=== PATIENT | male | born 1990 | race Two or more races ===

== ENCOUNTER 2025-02-02 17:28 | Inpatient (IN) | payer OTHER ==
[~2025-02-02] VITALS: Ht 175.3 cm; Wt 70.3 kg
--- NOTE | 2025-02-02 17:45 | NUR ---
PTE ALERTA Y ORIENTADO X3. REFIERE VENIR POR REFERIDO DE DR. CONRAD HENRY POR HX DE CELLULITIS Y ULCERA CON PRESENCIA DE BACTERIA EN PRASANTH BUSTAMANTE. SE RUBEN SV Y SE UBICA
[2025-02-02] MEDS ORDERED: 0.9 % SODIUM CHLORIDE 1,000 ML IV STA (17:57)
[2025-02-02] MEDS ORDERED: CIPROFLOXACIN IN 5 % DEXTROSE 400 MG/200 ML PIGGYBAG IV ONE ×2 (18:00→18:02)
--- NOTE | 2025-02-02 18:50 | NUR ---
SE ORIENTA PTE SOBRE TX MEDICO EL CUAL REFIERE ENTENDER.SE LE EXTRAEN MUESTRAS BAJO MEDIDAS ASEPTICAS,SE CANALIZA Y SE ADMINISTRAN MEDICAMENTOS.
--- NOTE | 2025-02-02 18:50 | NUR ---
NO SE BRENDAN CULTIVO DE ULCERA YA QUE NO SE PERMITE POR ER.
[2025-02-02 18:53] LABS: HEMATOCRIT 35.5 % (39.0-48.0); HEMOGLOBIN 11.8 g/dL (13-16.00); MEAN CORPUSCULAR HEMOGLOBIN 29.7 pg (27.00-32.0); MEAN CORPUSCULAR HGB CONC 33.3 g/dl (32.0-36.0); PLATELET COUNT 301 K/uL (150-450); RED BLOOD COUNT 3.99 M/uL (4.00-6.00)
[2025-02-02 19:11] LABS: ALBUMIN 2.4 gm/dL (3.4-5.0); BILIRUBIN TOTAL 0.18 mg/dL (0.3-1.2); CALCIUM 8.1 mg/dL (8.5-10.1); CREATININE SERUM 2.1 mg/dL (0.70-1.30); GFR 35.91; POTASSIUM 4.41 mEq/L (3.5-5.1); TOTAL PROTEIN 7.4 gm/dL (6.4-8.2)
[2025-02-02] MEDS ORDERED: MEROPENEM 500 MG/VIAL VIAL IV SCH (21:20)
[2025-02-02] MEDS ORDERED: 0.9 % SODIUM CHLORIDE 1,000 ML IV ONE (21:30)
[2025-02-02] MEDS ORDERED: VANCOMYCIN HCL 500 MG VIAL IU ONE (21:30)
[2025-02-02] MEDS ORDERED: ONDANSETRON HCL 4 MG in 0.9 % SODIUM CHLORIDE 50 ML IV PRN (21:30)
[2025-02-02] MEDS ORDERED: ACETAMINOPHEN 500 MG GEL..CAP PO PRN (21:30)
[2025-02-02] MEDS ORDERED: 0.9 % SODIUM CHLORIDE 1,000 ML IV SCH (21:30)
[2025-02-02] MEDS ORDERED: VANCOMYCIN HCL 1,000 MG VIAL ONE (21:34)
[2025-02-02 21:48] LABS: PH,URINE 5.5 (5.0-8.0); URINE APPEARANCE Clear; URINE BILIRRUBIN Negative (NEGATIVE); URINE BLOOD Large; URINE COLOR Yellow; URINE GLUCOSE Negative (NEGATIVE); URINE KETONE Negative (NEGATIVE); URINE LEUKOCYTE Negative; URINE NITRATE Negative; URINE PROTEIN >=1000 (NEGATIVE); URINE UROBILINOGEN 0.2 E.U./dl
[2025-02-02 21:51] LABS: URINE BACTERIA 183.5 uL (0.0-1933); URINE EPITHELIAL CELLS 18.8 uL (0.0-38.8); URINE RBC 616.4 uL (0.0-20.8); URINE WBC 133.9 uL (0.0-23.2)
[2025-02-02 22:10] LABS: URINE YEAST MANY /hpf
[2025-02-03 06:24] VITALS: BP 114/73
[2025-02-03 08:00] VITALS: BP 116/67; O2SAT 97
[2025-02-03] MEDS ORDERED: TETRACAINE/BENZOCAINE/BUTAMBEN 56 ML BOTTLE TOP STA (08:01)
[2025-02-03] MEDS ORDERED: TETRACAINE/BENZOCAINE/BUTAMBEN 56 ML BOTTLE TOP SCH (09:00)
[2025-02-03] MEDS ORDERED: FAMOTIDINE/PF 20 MG in 0.9 % SODIUM CHLORIDE 8 ML IV PUSH SCH (09:00)
[2025-02-03] MEDS ORDERED: SODIUM HYPOCHLORITE 1OZ TOP SCH (09:00)
[2025-02-03] MEDS ORDERED: RIVAROXABAN 20 MG TABLET PO SCH (09:00)
[2025-02-03 09:22] LABS: D DIMER 7.86 MG/L; INR 0.97; PARTIAL THROMBOPLASTIN TIME 28.6 SECONDS (22.0-34.0); PROTHROMBIN TIME 10.6 SECONDS (9.0-11.5)
[2025-02-03 10:04] LABS: ALBUMIN 2.2 gm/dL (3.4-5.0); BILIRUBIN TOTAL 0.24 mg/dL (0.3-1.2); CREATININE SERUM 1.63 mg/dL (0.70-1.30); GFR 48.11; GLOBULINA 4.3 G/DL (2.4-3.5); MAGNESIUM 1.5 mg/dL (1.8-2.4); PHOSPHOROUS 3.6 mg/dL (2.5-4.9); POTASSIUM 4.21 mEq/L (3.5-5.1); TOTAL PROTEIN 6.5 gm/dL (6.4-8.2)
[2025-02-03 10:14] LABS: C-REACTIVE PROTEIN 2.22 MG/DL (0.00-0.29)
[2025-02-03] MEDS ORDERED: OxyCODONE HCL/APAP UD (PERCOCET) PO PRN (11:30)
[2025-02-03 17:59] VITALS: BP 116/82; O2SAT 98
[2025-02-03] MEDS ORDERED: MAGNESIUM SULFATE/D5W 100 ML IV NR (19:00)
[2025-02-04 02:09] VITALS: BP 127/85; O2SAT 99
[2025-02-04] MEDS ORDERED: VANCOMYCIN HCL 1,000 MG VIAL IV SCH (09:00)
[2025-02-04 18:23] VITALS: BP 131/82; O2SAT 97
[2025-02-04 20:59] LABS: HEMATOCRIT 30.8 % (39.0-48.0); HEMOGLOBIN 10.4 g/dL (13-16.00); MEAN CELL VOLUME 89.6 fL (80.0-100.00); MEAN CORPUSCULAR HEMOGLOBIN 30.3 pg (27.00-32.0); MEAN CORPUSCULAR HGB CONC 33.9 g/dl (32.0-36.0); PLATELET COUNT 271 K/uL (150-450); RED BLOOD COUNT 3.44 M/uL (4.00-6.00); RED CELL DISTRIBUTION WIDTH 16.1 % (11.5-14.5)
[2025-02-04] MEDS ORDERED: METHYLPREDNISOLONE SOD SUCC 40 MG VIAL IV ONE (21:15)
[2025-02-04] MEDS ORDERED: DIPHENHYDRAMINE HCL 50 MG/ML VIAL 1ML IV ONE (21:15)
[2025-02-04 21:26] LABS: ALBUMIN 2.3 gm/dL (3.4-5.0); BILIRUBIN TOTAL 0.18 mg/dL (0.3-1.2); CALCIUM 7.9 mg/dL (8.5-10.1); CREATININE SERUM 1.37 mg/dL (0.70-1.30); GFR 58.79; GLOBULINA 4.1 G/DL (2.4-3.5); MAGNESIUM 1.5 mg/dL (1.8-2.4); PHOSPHOROUS 3.5 mg/dL (2.5-4.9); POTASSIUM 4.35 mEq/L (3.5-5.1); TOTAL PROTEIN 6.4 gm/dL (6.4-8.2)
[2025-02-04 21:30] LABS: C-REACTIVE PROTEIN 1.53 MG/DL (0.00-0.29)
[2025-02-05 02:30] VITALS: BP 147/96; O2SAT 98
[2025-02-05 04:00] VITALS: BP 146/88
[2025-02-05 08:29] VITALS: BP 135/86
[2025-02-05] MEDS ORDERED: TRAMADOL HCL 50 MG TABLET PO PRN (10:30)
[2025-02-05] MEDS ORDERED: PENTOXIFYLLINE 400 MG TABLET.SA PO SCH (13:13)
[2025-02-05] MEDS ORDERED: Pregabalin 50 MG CAPSULE PO PRN (13:15)
[2025-02-05 16:56] VITALS: BP 140/79; O2SAT 98
[2025-02-05] MEDS ORDERED: XARELTO20 MG PO (19:23)
[2025-02-06 00:54] VITALS: BP 136/90; O2SAT 98
[2025-02-06 08:14] VITALS: BP 130/90
[2025-02-06 18:49] VITALS: BP 147/92; O2SAT 100
[2025-02-07] MEDS ORDERED: AZTREONAM 1,000 MG VIAL IV SCH (01:00)
[2025-02-07 01:22] VITALS: BP 120/79; O2SAT 99
[2025-02-07 08:28] VITALS: BP 130/82
[2025-02-07] MEDS ORDERED: DIPHENHYDRAMINE HCL 50 MG CAPSULE PO NR (09:15)
[2025-02-07 18:57] VITALS: BP 147/93; O2SAT 97
[2025-02-08 01:34] VITALS: BP 145/85; O2SAT 98
[2025-02-08 07:45] LABS: MAGNESIUM 1.4 mg/dL (1.8-2.4); PHOSPHOROUS 3.4 mg/dL (2.5-4.9)
[2025-02-08 07:49] LABS: ALBUMIN 2.3 gm/dL (3.4-5.0); BILIRUBIN TOTAL 0.25 mg/dL (0.3-1.2); CALCIUM 8.3 mg/dL (8.5-10.1); CREATININE SERUM 1.62 mg/dL (0.70-1.30); GFR 48.45; GLOBULINA 4.2 G/DL (2.4-3.5); POTASSIUM 4.27 mEq/L (3.5-5.1); TOTAL PROTEIN 6.5 gm/dL (6.4-8.2)
[2025-02-08] MEDS ORDERED: FAMOTIDINE/PF 20 MG/2 ML VIAL ONE (07:57)
[2025-02-08 08:29] VITALS: BP 143/81; O2SAT 98
[2025-02-08] MEDS ORDERED: MAGNESIUM SULFATE IN WATER 50 ML IV NR (10:00)
[2025-02-08] MEDS ORDERED: DOXYCYCLINE HYCLATE 100MG IV ONE (16:44)
[2025-02-08] MEDS ORDERED: DOXYCYCLINE HYCLATE 100MG IV SCH (17:00)
[2025-02-08 17:32] VITALS: BP 126/71
[2025-02-09 02:30] VITALS: BP 152/96; O2SAT 98
[2025-02-09] MEDS ORDERED: DOXYCYCLINE HYCLATE 100MG IV ONE ×2 (05:11→16:28)
[2025-02-09 07:22] LABS: BASO % 0.4 % (0.1-1.2); EOS # 0.22 (0.04-0.54); EOS % 2.7 % (0.7-7.0); HEMATOCRIT 33.8 % (40.1-51.0); HEMOGLOBIN 11.5 g/dL (13.7-17.5); LYMPH # 2.09 (1.18-3.74); LYMPH % 26.1 % (19.3-53.1); MEAN CORPUSCULAR HEMOGLOBIN 29.3 pg (25.6-32.2); MONO # 0.51 (0.24-0.82); MONO % 6.4 % (4.7-12.5); NEUT # 5.13 (1.56-6.13); PLATELET COUNT 270 K/uL (163-369); RED BLOOD COUNT 3.93 M/uL (4.63-6.08); RED CELL DISTRIBUTION WIDTH 15.1 % (11.6-14.4)
[2025-02-09 08:16] VITALS: BP 147/95
[2025-02-09 08:38] LABS: ALBUMIN 2.3 gm/dL (3.4-5.0); BILIRUBIN TOTAL 0.26 mg/dL (0.3-1.2); CALCIUM 8.3 mg/dL (8.5-10.1); CREATININE SERUM 1.39 mg/dL (0.70-1.30); GFR 57.82; GLOBULINA 4.5 G/DL (2.4-3.5); MAGNESIUM 1.6 mg/dL (1.8-2.4); PHOSPHOROUS 3.4 mg/dL (2.5-4.9); POTASSIUM 4.19 mEq/L (3.5-5.1); TOTAL PROTEIN 6.8 gm/dL (6.4-8.2)
[2025-02-09] MEDS ORDERED: Pregabalin 50 MG,Pregabalin 25 MG PO SCH (13:00)
[2025-02-09] MEDS ORDERED: MAGNESIUM SULFATE/D5W 100 ML IV NR (13:15)
[2025-02-09 17:29] VITALS: BP 137/90; O2SAT 97
[2025-02-10 01:41] VITALS: BP 128/83; O2SAT 100
[2025-02-10] MEDS ORDERED: DOXYCYCLINE HYCLATE 100MG IV ONE ×2 (04:57→16:18)
[2025-02-10 07:50] LABS: ALBUMIN 2.3 gm/dL (3.4-5.0); CALCIUM 8.4 mg/dL (8.5-10.1); CREATININE SERUM 1.67 mg/dL (0.70-1.30); GFR 46.78; MAGNESIUM 1.7 mg/dL (1.8-2.4); PHOSPHOROUS 3.7 mg/dL (2.5-4.9); POTASSIUM 4.81 mEq/L (3.5-5.1)
[2025-02-10 08:29] VITALS: BP 132/66; O2SAT 99
[2025-02-10] MEDS ORDERED: MAGNESIUM SULFATE IN WATER 50 ML IV NR (14:00)
[2025-02-10 18:23] VITALS: BP 141/82; O2SAT 98
[2025-02-10] MEDS ORDERED: NICOTINE 21MG/24HR PATCH.TD24 TD SCH (22:54)
[2025-02-10] MEDS ORDERED: MAGNESIUM SULFATE 1,000 MG in 0.9 % SODIUM CHLORIDE 50 ML IV ONE (23:15)
[2025-02-11 01:30] VITALS: BP 150/92; O2SAT 100
[2025-02-11] MEDS ORDERED: TRAMADOL HCL 50 MG TABLET PO PRN (02:30)
[2025-02-11] MEDS ORDERED: DOXYCYCLINE HYCLATE 100MG IV ONE ×2 (04:45→15:31)
[2025-02-11 09:38] VITALS: BP 160/93; O2SAT 100
[2025-02-11 10:01] LABS: ALBUMIN 2.6 gm/dL (3.4-5.0); BILIRUBIN TOTAL 0.25 mg/dL (0.3-1.2); CALCIUM 8.5 mg/dL (8.5-10.1); CREATININE SERUM 1.64 mg/dL (0.70-1.30); GFR 47.77; GLOBULINA 4.7 G/DL (2.4-3.5); MAGNESIUM 2.1 mg/dL (1.8-2.4); POTASSIUM 4.27 mEq/L (3.5-5.1); TOTAL PROTEIN 7.3 gm/dL (6.4-8.2)
[2025-02-11 17:38] VITALS: BP 131/88
[2025-02-12 01:26] VITALS: BP 158/106
[2025-02-12 08:49] VITALS: BP 183/90; O2SAT 91
[2025-02-12 13:53] LABS: ALBUMIN 2.5 gm/dL (3.4-5.0); BILIRUBIN TOTAL 0.41 mg/dL (0.3-1.2); CALCIUM 8.5 mg/dL (8.5-10.1); CREATININE SERUM 1.59 mg/dL (0.70-1.30); GFR 49.51; GLOBULINA 4.6 G/DL (2.4-3.5); POTASSIUM 4.49 mEq/L (3.5-5.1); TOTAL PROTEIN 7.1 gm/dL (6.4-8.2)
[2025-02-12] MEDS ORDERED: PENTOXIFYLLINE400 MG PO (17:09)
[2025-02-12] MEDS ORDERED: XARELTO20 MG PO (17:09)
[2025-02-12] MEDS ORDERED: MONODOX100 MG PO (17:09)
[2025-02-12] MEDS ORDERED: LYRICA100 MG PO (17:09)
== END 2025-02-12 17:45 | disposition home or self-care (01) | DRG 580 ==
LOC: ER 17:28 → MEDI 21:58 → MEDJ 21:58
PROVIDERS: Emergency Medicine; Internal Medicine; Internal Medicine Infectious Disease; ADMIT Internal Medicine; ATTEND Internal Medicine
PROC: BT4JZZZ Ultrasonography of Kidneys and Bladder (ICD-10-PCS; 2025-02-02)
PROC: B54DZZZ Ultrasonography of Bilateral Lower Extremity Veins (ICD-10-PCS; 2025-02-02)
PROC: 0JBN3ZZ Excision of Right Lower Leg Subcutaneous Tissue and Fascia, Percutaneous Approach (ICD-10-PCS; principal; 2025-02-03)
PROC: BB24ZZZ Computerized Tomography (CT Scan) of Bilateral Lungs (ICD-10-PCS; 2025-02-04)
PROC: 02HV33Z Insertion of Infusion Device into Superior Vena Cava, Percutaneous Approach (ICD-10-PCS; 2025-02-04)
PROC: 0JBN3ZZ Excision of Right Lower Leg Subcutaneous Tissue and Fascia, Percutaneous Approach (ICD-10-PCS; 2025-02-10)
DX: L03.116 Cellulitis of left lower limb (principal); I82.401 Acute embolism and thrombosis of unspecified deep veins of right lower extremity; N17.8 Other acute kidney failure; L97.818 Non-pressure chronic ulcer of other part of right lower leg with other specified severity; L08.89 Other specified local infections of the skin and subcutaneous tissue; B96.20 Unspecified Escherichia coli [E. coli] as the cause of diseases classified elsewhere

== ENCOUNTER 2025-02-14 19:03 | Inpatient (IN) | payer OTHER ==
[~2025-02-14] VITALS: Ht 175.3 cm; Wt 74.8 kg
[~2025-02-14 19:03] MED LIST: LYRICA100 MG PO; MONODOX100 MG PO; PENTOXIFYLLINE400 MG PO; XARELTO20 MG PO
--- NOTE | 2025-02-14 19:41 | NUR ---
SE RECIBE PTE ALERTA, ORIENTADO X3 Y AMBULANDO. PTE REFIERE DOLOR EN TOBILLO SALAS, SE OBSERVA AREA CON EDEMA Y ULCERA. PTE REFIERE DOLOR AL CAMINAR. SE MIDEN S/V Y SE UBICA.
[2025-02-14] MEDS ORDERED: FAMOtidine 10 MG/ML (4ML VIAL) IV ONE (20:30)
[2025-02-14] MEDS ORDERED: CIPROFLOXACIN IN 5 % DEXTROSE 400 MG/200 ML PIGGYBAG IV ONE (20:30)
[2025-02-14 21:38] LABS: ALBUMIN 2.1 gm/dL (3.4-5.0); BILIRUBIN TOTAL 0.13 mg/dL (0.3-1.2); CREATININE SERUM 1.71 mg/dL (0.70-1.30); GFR 45.52; GLOBULINA 5.3 G/DL (2.4-3.5); POTASSIUM 4.55 mEq/L (3.5-5.1); TOTAL PROTEIN 7.4 gm/dL (6.4-8.2)
--- NOTE | 2025-02-14 21:38 | NUR ---
RN MOSES ORIENTA SOBRE TX MEDICO Y REFIERE ACEPTAR. EJECUTA ORDENES MEDICAS A DURANT TOTALIDAD.
--- NOTE | 2025-02-15 | NUR ---
SE RECIBE PACIENTE ALERTA Y ORIENTADO X3. EL MISMO CANALIZADO EN MANO IZQUIERDA # 24 EN S/L. EL MISMO PENDIENTE A BETH MUESTRAS DE LABORATORIOS.
--- NOTE | 2025-02-15 | NUR ---
SE BRENDAN MUESTRA DE LABORATORIO ORDENADA SE VERNON CANALIZADO EN LAI SMITH # 24.
[2025-02-15 00:25] LABS: BASO % 0.4 % (0.1-1.2); EOS # 0.24 (0.04-0.54); EOS % 3.4 % (0.7-7.0); HEMATOCRIT 35.2 % (40.1-51.0); HEMOGLOBIN 11.9 g/dL (13.7-17.5); LYMPH # 1.81 (1.18-3.74); LYMPH % 25.3 % (19.3-53.1); MEAN CORPUSCULAR HEMOGLOBIN 29.5 pg (25.6-32.2); MONO # 0.34 (0.24-0.82); MONO % 4.8 % (4.7-12.5); NEUT # 4.68 (1.56-6.13); NEUT % 65.4 % (34.0-71.1); PLATELET COUNT 279 K/uL (163-369); RED BLOOD COUNT 4.04 M/uL (4.63-6.08); RED CELL DISTRIBUTION WIDTH 14.8 % (11.6-14.4)
[2025-02-15] MEDS ORDERED: RIVAROXABAN 20 MG TABLET PO STA (01:53)
[2025-02-15] MEDS ORDERED: TRAMADOL HCL 50 MG TABLET PO STA ×2 (01:53→07:07)
[2025-02-15] MEDS ORDERED: 0.9 % SODIUM CHLORIDE 1,000 ML IV ONE (02:00)
--- NOTE | 2025-02-15 02:06 | NUR ---
SE COLOCA IVFS A PACIENTE Y SE ADMINITRA MEDICAMENTOS DEAN ORDEN MEDICA. PACIENTE PENDIENTE A ESTUDIOS DE DOPPLER EN AM. SE VERNON PENDIENTE MUESTRA DE D-DIMMER YA QUE PACIENTE TIENE POBRE ACESOS VENOSOS
[2025-02-15] MEDS ORDERED: CIPROFLOXACIN IN 5 % DEXTROSE 200 ML IV SCH (09:00)
[2025-02-15] MEDS ORDERED: METHYLPREDNISOLONE SOD SUCC 125 MG VIAL ONE (15:26)
[2025-02-15] MEDS ORDERED: FUROsemide 20 MG/2 ML VIAL IV ONE (17:00)
[2025-02-15] MEDS ORDERED: FUROsemide 20 MG/2 ML VIAL ONE (17:35)
[2025-02-15 22:20] VITALS: BP 145/107
[2025-02-16 00:34] VITALS: BP 143/80
[2025-02-16] MEDS ORDERED: SODIUM CHLORIDE 0.45 % 1,000 ML IV SCH (08:15)
[2025-02-16 08:17] VITALS: BP 149/93
[2025-02-16] MEDS ORDERED: ACETAMINOPHEN 500 MG GEL..CAP PO PRN (08:30)
[2025-02-16] MEDS ORDERED: hydrALAZINE HCL 20 MG VIAL IV PRN (08:30)
[2025-02-16] MEDS ORDERED: DOXYCYCLINE HYCLATE 100MG IV SCH (09:00)
[2025-02-16] MEDS ORDERED: ENOXAPARIN SODIUM 80 MG/0.8 ML SYRINGE SUBCUTANEO SCH (09:00)
[2025-02-16] MEDS ORDERED: FAMOTIDINE/PF 20 MG/2 ML VIAL IV SCH (09:00)
[2025-02-16] MEDS ORDERED: NICOTINE 21MG/24HR PATCH.TD24 TD SCH (09:48)
[2025-02-16] MEDS ORDERED: hydrALAZINE HCL 25 MG TABLET PO SCH (09:50)
[2025-02-16] MEDS ORDERED: TRAMADOL HCL 50 MG TABLET PO PRN (10:00)
[2025-02-16] MEDS ORDERED: DOXYCYCLINE HYCLATE 100MG IV ONE ×2 (10:40→20:33)
[2025-02-16 16:00] VITALS: BP 152/82; O2SAT 98
[2025-02-16] MEDS ORDERED: PENTOXIFYLLINE 400 MG TABLET.SA PO SCH (17:00)
[2025-02-16 17:09] LABS: INR 1.01; PARTIAL THROMBOPLASTIN TIME 32.9 SECONDS (22.0-34.0)
[2025-02-16] MEDS ORDERED: ONDANSETRON HCL 2 MG/ML VIAL IV PRN (17:15)
[2025-02-17 00:47] VITALS: BP 113/75; O2SAT 98
[2025-02-17 06:30] LABS: PH,URINE 6.5 (5.0-8.0); URINE APPEARANCE Clear; URINE BILIRRUBIN Negative (NEGATIVE); URINE BLOOD Moderate; URINE COLOR Yellow; URINE GLUCOSE Negative (NEGATIVE); URINE KETONE Negative (NEGATIVE); URINE LEUKOCYTE Negative; URINE NITRATE Negative; URINE UROBILINOGEN 0.2 E.U./dl
[2025-02-17 06:32] LABS: URINE BACTERIA 35.4 uL (0.0-1933); URINE EPITHELIAL CELLS 5.5 uL (0.0-38.8); URINE RBC 359.8 uL (0.0-20.8); URINE WBC 36.7 uL (0.0-23.2)
[2025-02-17 06:52] LABS: URINE CAST 0.73 uL (0.0-1.40); URINE PROTEIN 300 (NEGATIVE)
[2025-02-17 08:00] VITALS: BP 133/83; O2SAT 92
[2025-02-17] MEDS ORDERED: DOXYCYCLINE HYCLATE 100MG IV ONE ×3 (08:27→20:53)
[2025-02-17 17:00] VITALS: BP 131/71; O2SAT 97
[2025-02-17] MEDS ORDERED: VITAMIN B COMPLEX 1 EACH PO NR (19:15)
[2025-02-17] MEDS ORDERED: Cyanocobalamin/Mecobalamin 1 TAB.SL SL NR (19:15)
[2025-02-17 19:27] LABS: COCAINE NEGATIVE (NEGATIVE); METHADONE NEGATIVE (NEGATIVE); OPIATES NEGATIVE (NEGATIVE); THC ( Cannabinoids) POSITIVE (NEGATIVE)
[2025-02-18 00:38] VITALS: BP 134/89
[2025-02-18 08:00] VITALS: BP 148/92; O2SAT 99
[2025-02-18] MEDS ORDERED: DOXYCYCLINE HYCLATE 100MG IV ONE ×2 (08:02→16:31)
[2025-02-18] MEDS ORDERED: VITAMIN B COMPLEX 1 EACH PO SCH (09:00)
[2025-02-18] MEDS ORDERED: Cyanocobalamin/Mecobalamin 1 TAB.SL SL SCH (09:00)
[2025-02-18 11:29] LABS: BASO % 0.2 % (0.1-1.2); EOS # 0.22 (0.04-0.54); EOS % 2.7 % (0.7-7.0); HEMATOCRIT 33.6 % (40.1-51.0); HEMOGLOBIN 11.2 g/dL (13.7-17.5); LYMPH # 2.51 (1.18-3.74); LYMPH % 30.5 % (19.3-53.1); MEAN CORPUSCULAR HEMOGLOBIN 28.6 pg (25.6-32.2); MONO # 0.61 (0.24-0.82); MONO % 7.4 % (4.7-12.5); NEUT # 4.86 (1.56-6.13); PLATELET COUNT 344 K/uL (163-369); RED BLOOD COUNT 3.91 M/uL (4.63-6.08); RED CELL DISTRIBUTION WIDTH 14.4 % (11.6-14.4)
[2025-02-18 12:50] LABS: ALBUMIN 2.4 gm/dL (3.4-5.0); BILIRUBIN TOTAL 0.22 mg/dL (0.3-1.2); CALCIUM 8.4 mg/dL (8.5-10.1); CREATININE SERUM 1.68 mg/dL (0.70-1.30); GFR 46.46; GLOBULINA 4.5 G/DL (2.4-3.5); MAGNESIUM 1.5 mg/dL (1.8-2.4); PHOSPHOROUS 3.4 mg/dL (2.5-4.9); POTASSIUM 4.12 mEq/L (3.5-5.1); TOTAL PROTEIN 6.9 gm/dL (6.4-8.2)
[2025-02-18 12:51] LABS: C-REACTIVE PROTEIN 2.98 MG/DL (0.00-0.29)
[2025-02-18 16:35] VITALS: BP 142/100; O2SAT 95
[2025-02-18] MEDS ORDERED: MAGNESIUM SULFATE IN WATER 50 ML IV NR (17:00)
[2025-02-19 02:07] VITALS: BP 108/72
[2025-02-19] MEDS ORDERED: DOXYCYCLINE HYCLATE 100MG IV ONE ×2 (08:27→20:35)
[2025-02-19 09:12] VITALS: BP 150/92; O2SAT 100
[2025-02-19] MEDS ORDERED: TRAMADOL HCL 50 MG TABLET PO PRN (09:15)
[2025-02-19] MEDS ORDERED: PANTOPRAZOLE SODIUM 40 MG/VIAL VIAL IV PUSH NR (10:00)
[2025-02-19] MEDS ORDERED: TRAMADOL HCL 50 MG TABLET PO SCH (12:00)
[2025-02-19 16:39] VITALS: BP 124/84; O2SAT 96
[2025-02-19] MEDS ORDERED: PANTOPRAZOLE SODIUM 40 MG/VIAL VIAL IV SCH (17:00)
[2025-02-19] MEDS ORDERED: ONDANSETRON HCL 2 MG/ML VIAL IV PRN (19:27)
[2025-02-20 02:44] VITALS: BP 145/94; O2SAT 98
[2025-02-20] MEDS ORDERED: DOXYCYCLINE HYCLATE 100MG IV ONE ×2 (07:42→18:02)
[2025-02-20] MEDS ORDERED: PENTOXIFYLLINE 400 MG TABLET.SA PO SCH (08:00)
[2025-02-20 08:41] VITALS: BP 143/50
[2025-02-20] MEDS ORDERED: CLONIDINE HCL 0.1 MG TABLET PO NR (11:30)
[2025-02-20 16:45] VITALS: BP 130/83; O2SAT 99
[2025-02-20] MEDS ORDERED: CLONIDINE HCL 0.1 MG TABLET PO SCH (17:00)
[2025-02-21 01:50] VITALS: BP 112/78; O2SAT 99
[2025-02-21] MEDS ORDERED: DOXYCYCLINE HYCLATE 100MG IV ONE (07:22)
[2025-02-21 08:27] VITALS: BP 162/72
[2025-02-21] MEDS ORDERED: B Complex PO (12:47)
[2025-02-21] MEDS ORDERED: DOXYCYCLINE HY100 MG PO (12:47)
[2025-02-21] MEDS ORDERED: Neurin-Sl Tablet Sl SL (12:47)
[2025-02-21] MEDS ORDERED: NICOTINE 21MG/24HR P TD (12:53)
[2025-02-21] MEDS ORDERED: HYDRALAZINE HCL25 MG PO (12:53)
[2025-02-21] MEDS ORDERED: XARELTO20 MG PO (12:53)
[2025-02-21] MEDS ORDERED: PENTOXIFYLLINE400 MG PO (12:53)
[2025-02-21] MEDS ORDERED: PROTONIX40 MG PO (12:53)
[2025-02-21] MEDS ORDERED: CLONIDINE HCL0.1 MG PO (12:53)
[2025-02-21] MEDS ORDERED: XARELTO1 EACH PO (12:56)
[2025-02-21] MEDS ORDERED: TRAM1TAB98 PO (12:59)
[2025-02-21 16:25] VITALS: BP 111/73; O2SAT 98
== END 2025-02-21 21:07 | disposition home or self-care (01) | DRG 580 ==
LOC: ER 20:19 → MEDI 02-15 20:07
PROVIDERS: General Practice; Internal Medicine Infectious Disease; ADMIT Internal Medicine; ATTEND Internal Medicine
PROC: B54BZZZ Ultrasonography of Right Lower Extremity Veins (ICD-10-PCS; 2025-02-15)
PROC: B44FZZZ Ultrasonography of Right Lower Extremity Arteries (ICD-10-PCS; 2025-02-15)
PROC: 0JDQ0ZZ Extraction of Right Foot Subcutaneous Tissue and Fascia, Open Approach (ICD-10-PCS; principal; 2025-02-16)
PROC: 02HV33Z Insertion of Infusion Device into Superior Vena Cava, Percutaneous Approach (ICD-10-PCS; 2025-02-16)
PROC: BW40ZZZ Ultrasonography of Abdomen (ICD-10-PCS; 2025-02-17)
PROC: BW4GZZZ Ultrasonography of Pelvic Region (ICD-10-PCS; 2025-02-17)
PROC: 8E0ZXY6 Isolation (ICD-10-PCS; 2025-02-19)
DX: L97.519 Non-pressure chronic ulcer of other part of right foot with unspecified severity (principal); I80.221 Phlebitis and thrombophlebitis of right popliteal vein; L03.115 Cellulitis of right lower limb; N17.9 Acute kidney failure, unspecified; L51.1 Stevens-Johnson syndrome; I80.231 Phlebitis and thrombophlebitis of right tibial vein; I87.2 Venous insufficiency (chronic) (peripheral); D64.9 Anemia, unspecified

== ENCOUNTER 2025-05-01 03:16 | Inpatient (IN) | payer OTHER ==
[~2025-05-01] VITALS: Ht 175.3 cm; Wt 70.3 kg
[~2025-05-01 03:16] MED LIST changes: +B Complex PO; +CLONIDINE HCL0.1 MG PO; +DOXYCYCLINE HY100 MG PO; +HYDRALAZINE HCL25 MG PO; +NICOTINE 21MG/24HR P TD; +Neurin-Sl Tablet Sl SL; +PROTONIX40 MG PO; +TRAM1TAB98 PO; +XARELTO1 EACH PO
[2025-05-01 10:34] LABS: BASO % 0.7 % (0.1-1.2); EOS # 0.12 (0.04-0.54); EOS % 1.6 % (0.7-7.0); LYMPH # 2.15 (1.18-3.74); LYMPH % 29.5 % (19.3-53.1); MEAN PLATELET VOLUME 8.70 fl (9.4-12.4); MONO # 0.46 (0.24-0.82); MONO % 6.3 % (4.7-12.5); NEUT # 4.46 (1.56-6.13); NEUT % 61.1 % (34.0-71.1); RED CELL DISTRIBUTION WIDTH 15.6 % (11.6-14.4)
[2025-05-01 10:49] LABS: ALT/SGPT 19.0 U/L (12-78); AST/SGOT 17.0 U/L (15-37); BILIRUBIN TOTAL 0.16 mg/dL (0.3-1.2); BUN CREA RATIO 16.0 (7.0-25.0); CREATININE SERUM 1.34 mg/dL (0.70-1.30); GFR 60.31; GLOBULINA 5.2 G/DL (2.4-3.5); GLUCOSE FASTING 81.0 mg/dL (65-100); INR < 0.93; OSMOLALITY SERUM 284.0 MOSM/KG (275-295)
[2025-05-01 12:06] LABS: COVID-19 AG NEGATIVE (NEGATIVE)
[2025-05-01] MEDS ORDERED: ENOXAPARIN SODIUM 40 MG/0.4 ML SYRINGE SUBCUTANEO SCH (17:18)
[2025-05-01] MEDS ORDERED: CIPROFLOXACIN IN 5 % DEXTROSE 200 ML IV SCH (17:18)
[2025-05-01] MEDS ORDERED: ACETAMINOPHEN 325 MG TABLET PO PRN (17:30)
[2025-05-01] MEDS ORDERED: 0.9 % SODIUM CHLORIDE 1,000 ML IV SCH (17:30)
[2025-05-01] MEDS ORDERED: KETOROLAC TROMETHAMINE 30 MG VIAL IM PRN (18:15)
[2025-05-01] MEDS ORDERED: RIVAROXABAN 20 MG TABLET PO SCH (18:15)
[2025-05-01] MEDS ORDERED: NICOTINE 21MG/24HR PATCH.TD24 TD SCH (22:18)
[2025-05-02 00:09] VITALS: BP 159/85; O2SAT 96
[2025-05-02 00:23] LABS: URINE APPEARANCE Clear; URINE BILIRRUBIN Negative (NEGATIVE); URINE BLOOD Large; URINE COLOR Yellow; URINE GLUCOSE Negative (NEGATIVE); URINE KETONE Negative (NEGATIVE); URINE LEUKOCYTE Negative; URINE NITRATE Negative; URINE UROBILINOGEN 0.2 E.U./dl
[2025-05-02 00:26] LABS: URINE BACTERIA 69.6 uL (0.0-1933); URINE EPITHELIAL CELLS 4.7 uL (0.0-38.8); URINE RBC 330.7 uL (0.0-20.8); URINE WBC 46.2 uL (0.0-23.2)
[2025-05-02 00:30] LABS: URINE CAST 0.73 uL (0.0-1.40); URINE PROTEIN 300 (NEGATIVE)
[2025-05-02 08:00] VITALS: BP 128/77; O2SAT 98
[2025-05-02] MEDS ORDERED: TIGECYCLINE IV ONE (14:00)
[2025-05-02 16:11] VITALS: BP 139/85; O2SAT 95
[2025-05-02] MEDS ORDERED: LACTOBACILLUS ACIDOPHILUS 1 CAP CAP PO SCH (17:00)
[2025-05-03 00:57] VITALS: BP 135/88; O2SAT 100
[2025-05-03] MEDS ORDERED: TIGECYCLINE IV SCH (05:00)
[2025-05-03 08:00] VITALS: BP 137/79; O2SAT 98
[2025-05-03] MEDS ORDERED: CHLORHEXIDINE GLUCONATE 120 ML BOTTLE TOP SCH (09:00)
[2025-05-03] MEDS ORDERED: FAMOTIDINE/PF 20 MG/2 ML VIAL IV SCH (09:48)
[2025-05-03 16:00] VITALS: BP 134/88; O2SAT 99
[2025-05-04 00:59] VITALS: BP 143/89; O2SAT 97
[2025-05-04 09:39] VITALS: BP 134/90; O2SAT 98
[2025-05-04 16:28] VITALS: BP 156/98; O2SAT 97
[2025-05-05 01:28] VITALS: BP 149/89; O2SAT 97
[2025-05-05 17:31] VITALS: BP 166/60; O2SAT 98
[2025-05-06 00:36] VITALS: BP 151/73; O2SAT 97
[2025-05-06 08:00] VITALS: BP 136/80; O2SAT 100
[2025-05-06 16:43] VITALS: BP 148/88; O2SAT 99
[2025-05-07] VITALS: BP 145/98; O2SAT 100
[2025-05-07] MEDS ORDERED: ONDANSETRON HCL 4 MG in DEXTROSE 5 % IN WATER 50 ML IV PRN (01:00)
[2025-05-07] MEDS ORDERED: ENALAPRILAT DIHYDRATE 1.25 MG/ML VIAL IV PRN (01:00)
[2025-05-07] MEDS ORDERED: KETOROLAC TROMETHAMINE 30 MG VIAL IM PRN (01:00)
[2025-05-07 06:00] VITALS: BP 143/95
[2025-05-07 08:30] VITALS: BP 138/92
[2025-05-07 15:47] VITALS: BP 135/86; O2SAT 100
[2025-05-08 00:13] VITALS: BP 152/81; O2SAT 98
[2025-05-08 09:47] VITALS: BP 141/90; O2SAT 99
[2025-05-08 16:00] VITALS: BP 130/88; O2SAT 97
[2025-05-09 01:28] VITALS: BP 132/87; O2SAT 98
[2025-05-09 08:39] VITALS: BP 147/95; O2SAT 98
[2025-05-09 16:00] VITALS: BP 139/91; O2SAT 99
[2025-05-10 01:40] VITALS: BP 121/80; O2SAT 96
[2025-05-10 06:59] LABS: BASO % 0.7 % (0.1-1.2); EOS # 0.32 (0.04-0.54); EOS % 3.0 % (0.7-7.0); LYMPH # 3.17 (1.18-3.74); LYMPH % 29.5 % (19.3-53.1); MEAN PLATELET VOLUME 9.00 fl (9.4-12.4); MONO # 0.67 (0.24-0.82); MONO % 6.2 % (4.7-12.5); NEUT # 6.49 (1.56-6.13); NEUT % 60.4 % (34.0-71.1); RED CELL DISTRIBUTION WIDTH 15.3 % (11.6-14.4)
[2025-05-10 07:06] LABS: ALT/SGPT 20.0 U/L (12-78); AST/SGOT 13.0 U/L (15-37); BILIRUBIN TOTAL 0.25 mg/dL (0.3-1.2); BUN CREA RATIO 27.0 (7.0-25.0); CREATININE SERUM 1.63 mg/dL (0.70-1.30); GFR 48.11; GLOBULINA 5.1 G/DL (2.4-3.5); GLUCOSE FASTING 76.0 mg/dL (65-100); OSMOLALITY SERUM 291.0 MOSM/KG (275-295)
[2025-05-10 08:00] VITALS: BP 120/90; O2SAT 98
[2025-05-10 17:16] VITALS: BP 134/84; O2SAT 98
[2025-05-10] MEDS ORDERED: TIGECYCLINE IV SCH (21:00)
[2025-05-11 00:22] VITALS: BP 133/92; O2SAT 100
[2025-05-11 16:00] VITALS: BP 116/80; O2SAT 98
[2025-05-12 00:55] VITALS: BP 134/78; O2SAT 98
[2025-05-12 08:00] VITALS: BP 130/70; O2SAT 97
[2025-05-12] MEDS ORDERED: SODIUM HYPOCHLORITE 1OZ TOP SCH (09:22)
[2025-05-12 11:21] LABS: BUN CREA RATIO 24.0 (7.0-25.0); CREATININE SERUM 1.48 mg/dL (0.70-1.30); GFR 53.78; GLUCOSE FASTING 97.0 mg/dL (65-100); OSMOLALITY SERUM 293.0 MOSM/KG (275-295)
[2025-05-12] MEDS ORDERED: KETOROLAC TROMETHAMINE 30 MG VIAL IM PRN (11:45)
[2025-05-12 16:00] VITALS: BP 148/90; O2SAT 99
[2025-05-13 01:47] VITALS: BP 152/73; O2SAT 98
[2025-05-13 08:00] VITALS: BP 127/89; O2SAT 95
[2025-05-13 16:00] VITALS: BP 135/88; O2SAT 98
[2025-05-14 02:10] VITALS: BP 139/84; O2SAT 98
[2025-05-14 11:12] LABS: BUN CREA RATIO 24.0 (7.0-25.0); CREATININE SERUM 1.64 mg/dL (0.70-1.30); GFR 47.77; GLUCOSE FASTING 117.0 mg/dL (65-100); OSMOLALITY SERUM 290.0 MOSM/KG (275-295)
[2025-05-14 16:00] VITALS: BP 152/82; O2SAT 98
[2025-05-15 01:30] VITALS: BP 126/77; O2SAT 98
[2025-05-15 08:00] VITALS: BP 138/93; O2SAT 98
[2025-05-15 16:00] VITALS: BP 128/82; O2SAT 98
[2025-05-16 01:17] VITALS: BP 143/91; O2SAT 98
[2025-05-16 08:00] VITALS: BP 150/90; O2SAT 95
[2025-05-16] MEDS ORDERED: MORPHINE SULFATE 2 MG/ML SYRINGE IV PRN (10:45)
[2025-05-16 16:00] VITALS: BP 148/82; O2SAT 95
[2025-05-17 00:52] VITALS: BP 136/87; O2SAT 99
[2025-05-17 09:41] VITALS: BP 144/96; O2SAT 99
[2025-05-17 10:13] LABS: BASO % 0.7 % (0.1-1.2); EOS # 0.34 (0.04-0.54); EOS % 3.4 % (0.7-7.0); LYMPH # 4.14 (1.18-3.74); LYMPH % 41.5 % (19.3-53.1); MEAN PLATELET VOLUME 9.70 fl (9.4-12.4); MONO # 0.56 (0.24-0.82); MONO % 5.6 % (4.7-12.5); NEUT # 4.85 (1.56-6.13); NEUT % 48.6 % (34.0-71.1); RED CELL DISTRIBUTION WIDTH 15.0 % (11.6-14.4)
[2025-05-17 11:05] LABS: BUN CREA RATIO 24.0 (7.0-25.0); CREATININE SERUM 1.7 mg/dL (0.70-1.30); GFR 45.83; GLUCOSE FASTING 73.0 mg/dL (65-100); OSMOLALITY SERUM 284.0 MOSM/KG (275-295)
[2025-05-17 16:00] VITALS: BP 138/88; O2SAT 98
[2025-05-18 01:55] VITALS: BP 136/84; O2SAT 98
[2025-05-18 08:00] VITALS: BP 128/82; O2SAT 100
[2025-05-18] MEDS ORDERED: ACETAMINOPHEN 500 MG GEL..CAP PO PRN (09:45)
[2025-05-18] MEDS ORDERED: MORPHINE SULFATE 2 MG/ML SYRINGE IV PRN (13:00)
[2025-05-18] MEDS ORDERED: MORPHINE SULFATE 2 MG/ML CARTRIDGE IV PRN (13:30)
[2025-05-18 16:00] VITALS: BP 163/101; O2SAT 98
[2025-05-18] MEDS ORDERED: ONDANSETRON HCL 2 MG/ML VIAL IV PRN (18:30)
[2025-05-18] MEDS ORDERED: FAMOTIDINE/PF 20 MG/2 ML VIAL IV PUSH SCH (21:00)
[2025-05-19 00:53] VITALS: BP 132/69; O2SAT 98
[2025-05-19 10:19] VITALS: BP 135/83; O2SAT 98
[2025-05-19 16:00] VITALS: BP 128/84; O2SAT 95
[2025-05-20 02:18] VITALS: BP 124/81; O2SAT 96
[2025-05-20 09:29] LABS: BUN CREA RATIO 23.0 (7.0-25.0); CREATININE SERUM 1.69 mg/dL (0.70-1.30); GFR 46.14; GLUCOSE FASTING 71.0 mg/dL (65-100); OSMOLALITY SERUM 289.0 MOSM/KG (275-295)
[2025-05-20 17:53] VITALS: BP 170/109; O2SAT 99
[2025-05-20] MEDS ORDERED: TRAMADOL HCL 50 MG TABLET PO PRN (18:15)
[2025-05-20] MEDS ORDERED: TIGECYCLINE IV SCH ×2 (21:00)
[2025-05-21 01:26] VITALS: BP 152/91; O2SAT 100
[2025-05-21 09:41] VITALS: BP 137/89; O2SAT 99
[2025-05-21 17:59] VITALS: BP 147/90; O2SAT 100
[2025-05-22 02:19] VITALS: BP 140/101
[2025-05-22 09:31] VITALS: BP 160/90
[2025-05-22 13:28] VITALS: BP 140/80
[2025-05-22 18:20] VITALS: BP 150/95; O2SAT 97
[2025-05-23 02:17] VITALS: BP 150/85; O2SAT 100
[2025-05-23 08:56] VITALS: BP 140/90; O2SAT 98
== END 2025-05-23 20:00 | disposition home or self-care (01) | DRG 594 ==
LOC: ER 03:16 → SURH 17:27 → SURG 17:27 → SURH 05-02 12:15 → MEDJ 05-20 10:09
PROVIDERS: Emergency Medicine; Internal Medicine; Student in an Organized Health Care Education/Training Program; ADMIT Internal Medicine; ATTEND Internal Medicine
PROC: B54DZZZ Ultrasonography of Bilateral Lower Extremity Veins (ICD-10-PCS; principal; 2025-05-01)
PROC: 8E0ZXY6 Isolation (ICD-10-PCS; 2025-05-02)
PROC: 05HB33Z Insertion of Infusion Device into Right Basilic Vein, Percutaneous Approach (ICD-10-PCS; 2025-05-03)
PROC: BQ3LZZZ Magnetic Resonance Imaging (MRI) of Right Foot (ICD-10-PCS; 2025-05-10)
DX: L97.919 Non-pressure chronic ulcer of unspecified part of right lower leg with unspecified severity (principal); I10 Essential (primary) hypertension; F12.90 Cannabis use, unspecified, uncomplicated; R60.0 Localized edema; M79.604 Pain in right leg; Z86.2 Personal history of diseases of the blood and blood-forming organs and certain disorders involving the immune mechanism; B96.89 Other specified bacterial agents as the cause of diseases classified elsewhere; B95.2 Enterococcus as the cause of diseases classified elsewhere; Z86.718 Personal history of other venous thrombosis and embolism; Z79.01 Long term (current) use of anticoagulants
CPT/HCPCS: 73722